=== PATIENT | female | born 1995 | race Two or more races ===

== ENCOUNTER → 2018-05-19 09:51 | Outpatient (REF) | payer MEDICAID, SELFPAY ==
[2018-05-19 12:13] LABS: TSH 4.27 uIU/mL (0.358-3.74)
== END ==
LOC: NCHCN 09:51
PROVIDERS: PCP Nurse Practitioner Family; Visit Provider Nurse Practitioner Family
DX: Z86.39 Personal history of other endocrine, nutritional and metabolic disease (principal)
CPT/HCPCS: 84443

== ENCOUNTER 2018-09-01 11:45 | Outpatient (REF) | payer MEDICAID, SELFPAY ==
[2018-09-01 12:53] LABS: TSH (W/Ref FT4) 3.44 uIU/mL (0.358-3.74)
== END 2018-09-01 12:05 ==
LOC: NCHCN 11:45
PROVIDERS: PCP Nurse Practitioner Family; Visit Provider Nurse Practitioner Family
DX: R94.6 Abnormal results of thyroid function studies (principal)
CPT/HCPCS: 84443

== ENCOUNTER 2018-11-05 10:08 | Outpatient (REF) | payer MEDICAID, SELFPAY ==
[2018-11-05 12:24] LABS: Abs Immature Grans 0.01 k/cumm (0.0-0.09); Absolute Basophil Count 0.04 k/cumm (0.0-0.2); Absolute Eosinophil Count 0.08 k/cumm (0.0-0.7); Absolute Lymphocyte Count 1.82 k/cumm (1.2-3.4); Absolute Monocyte Count 0.49 k/cumm (0.11-0.7); Basophils % 0.6; Eosinophils % 1.1; HCT 40.9 % (36.0-46.0); HGB 13.8 g/dL (12.0-15.5); Immature Grans % 0.1; Lymphocytes % 25.1; Mean Corp. HGB Concentration 33.7 g/dL (32.0-36.0); Mean Corpuscular Hemoglobin 28.6 pg (27.0-33.0); Mean Corpuscular Volume 84.9 fL (80-95); Mean Platelet Volume 10.2 fL (8.0-11.0); Monocytes % 6.8; Neutrophils % 66.3; Platelet Count 345 x1000/uL (130-400); RBC 4.82 m/cumm (4.00-5.20); RBC Distribution Width 12.9 % (11.7-14.6); White Blood Cell Count 7.24 k/cumm (4.4-10.8)
[2018-11-05 12:34] LABS: ALT 27 U/L (12-78); AST 19 U/L (15-37); Albumin 3.4 g/dL (3.4-5.0); Alkaline Phosphatase 54 U/L (46-116); Anion Gap 9.3 mmol/L (3-11); BUN 12 mg/dL (7-18); Bilirubin, Total 0.7 mg/dL (0.2-1.0); CO2 26.7 mmol/L (21.0-32.0); CREATININE 0.73 mg/dL (0.55-1.02); Calcium 9.2 mg/dL (8.5-10.1); Chloride 105 mmol/L (98-107); Glucose 86 mg/dL (70-100); Potassium 4.1 mmol/L (3.5-5.1); Sodium 141 mmol/L (136-145)
[2018-11-06 06:32] LABS: Vitamin D 25 Total 30.2 ng/ml (30-100)
== END 2018-11-05 10:28 ==
LOC: NCHCN 10:08
PROVIDERS: PCP Nurse Practitioner Family; Visit Provider Nurse Practitioner Family
DX: F43.21 Adjustment disorder with depressed mood (principal); G47.00 Insomnia, unspecified
CPT/HCPCS: 80053; 82306; 85025

== ENCOUNTER 2019-11-26 03:21 | Outpatient (CLI) | payer MEDICAID, SELFPAY ==
[2019-11-26 11:44] LABS: HCT 40.6 % (36.0-46.0); HGB 13.6 g/dL (12.0-15.5); Mean Corp. HGB Concentration 33.5 g/dL (32.0-36.0); Mean Corpuscular Hemoglobin 28.5 pg (27.0-33.0); Mean Corpuscular Volume 84.9 fL (80-95); Mean Platelet Volume 9.7 fL (8.0-11.0); Platelet Count 397 x1000/uL (130-400); RBC 4.78 m/cumm (4.00-5.20); RBC Distribution Width 12.9 % (11.7-14.6); White Blood Cell Count 8.95 k/cumm (4.4-10.8)
[2019-11-26 13:12] LABS: ALT 25 U/L (14-59); AST 19 U/L (15-37); Albumin 3.5 g/dL (3.4-5.0); Alkaline Phosphatase 57 U/L (46-116); Anion Gap 8.5 mmol/L (3-11); BUN 8 mg/dL (7-18); Bilirubin, Total 0.6 mg/dL (0.2-1.0); CO2 25.5 mmol/L (21.0-32.0); CREATININE 0.68 mg/dL (0.55-1.02); Calcium 8.7 mg/dL (8.5-10.1); Chloride 105 mmol/L (98-107); Glucose 82 mg/dL (74-106); Potassium 4.6 mmol/L (3.5-5.1); Sodium 139 mmol/L (136-145); Total Protein 6.9 g/dL (6.4-8.2)
== END 2019-11-26 03:41 ==
PROVIDERS: PCP Nurse Practitioner Family; Visit Provider Nurse Practitioner Family
DX: R94.6 Abnormal results of thyroid function studies (principal); F43.21 Adjustment disorder with depressed mood
CPT/HCPCS: 36415; 80053; 85027; 84443

== ENCOUNTER 2020-02-15 12:39 | Outpatient (REF) | payer MEDICAID, SELFPAY ==
[2020-02-15 14:55] LABS: TSH (W/Ref FT4) 4.57 uIU/mL (0.36-3.74)
[2020-02-15 15:13] LABS: FREE T4 0.92 ng/dL (0.76-1.46)
== END 2020-02-15 12:59 ==
LOC: NCHCN 12:39
PROVIDERS: PCP Nurse Practitioner Family; Visit Provider Nurse Practitioner Family
DX: Z86.39 Personal history of other endocrine, nutritional and metabolic disease (principal)
CPT/HCPCS: 84439; 84443

== ENCOUNTER 2020-04-08 10:19 | Outpatient (REF) | payer MEDICAID, SELFPAY ==
--- NOTE | 2020-04-08 10:00 | PAPFT_PTH ---
PATIENT: Mary Jo Healy LOC: [facility] U#:[id number] AGE/SX: 24/F ROOM: RE04/08/[address]: CHEY Hancock : 1995 BED: DIS: 04/08/2020 SPEC #: [id number] RECD: 04/08/20 12:35 STATUS: MUNDO REQ #: [id number] FORREST: 04/08/20 10:[address]: Sharon Ellis DEPT: [facility] Cytology RECD BY: Kecia Morgan ENTERED: 04/08/20 12:41 SP TYPE: PAPFT OTHR DR: Emilie Lancaster Tissues: 1 - CX/ENDOCX FOR PAP SMEARS Procedures: PAP THIN PREP/UVM Screening Comments: [id number]
== END 2020-04-08 10:39 ==
LOC: LBN 10:19
PROVIDERS: PCP Nurse Practitioner Family; Visit Provider Nurse Practitioner Family
DX: Z12.4 Encounter for screening for malignant neoplasm of cervix (principal)
CPT/HCPCS: 88142

== ENCOUNTER 2020-12-02 15:45 | Outpatient (REF) | payer MEDICAID, SELFPAY ==
[2020-12-02 15:46] LABS: HCT 40.2 % (36.0-46.0); HGB 13.5 g/dL (11.2-15.7); MCH 28.8 pg (27.0-33.0); MCHC 33.6 % (32.0-36.0); MCV 85.7 fL (80-95); Platelet Count 415 10^3/uL (130-400); RBC 4.69 10^6/uL (3.93-5.22); RDW 12.9 % (11.7-14.6); WBC 9.35 10^3/uL (4.4-10.8)
[2020-12-02 16:14] LABS: ALT 32 U/L (14-59); AST 19 U/L (15-37); Albumin 3.3 g/dL (3.4-5.0); Alkaline Phosphatase 64 U/L (46-116); BUN 9 mg/dL (7-18); Bilirubin, Total 0.5 mg/dL (0.2-1.0); CREATININE 0.6 mg/dL (0.55-1.02); Calcium 9.1 mg/dL (8.5-10.1); Chloride 104 mmol/L (98-107); Glucose 123 mg/dL (74-106); Sodium 140 mmol/L (136-145); TSH (W/Ref FT4) 3.92 uIU/mL (0.36-3.74)
[2020-12-02 16:37] LABS: FREE T4 0.86 ng/dL (0.76-1.46)
== END 2020-12-02 15:46 | disposition home or self-care (01) ==
LOC: NCHCN 15:45
PROVIDERS: PCP Nurse Practitioner Family; Visit Provider Nurse Practitioner Family
DX: R53.83 Other fatigue (principal); Z86.39 Personal history of other endocrine, nutritional and metabolic disease
CPT/HCPCS: 80053; 85027; 84439; 84443

== ENCOUNTER 2021-12-01 18:41 | Outpatient (REF) | payer MEDICAID, SELFPAY ==
[2021-12-01 18:53] LABS: TSH (W/Ref FT4) 3.78 uIU/mL (0.36-3.74)
[2021-12-01 19:14] LABS: FREE T4 0.92 ng/dL (0.76-1.46)
== END 2021-12-01 18:42 | disposition home or self-care (01) ==
LOC: LBN 18:41
PROVIDERS: PCP Nurse Practitioner Family; Visit Provider Nurse Practitioner Family
DX: Z86.39 Personal history of other endocrine, nutritional and metabolic disease (principal)
CPT/HCPCS: 84439; 84443

== ENCOUNTER 2021-12-17 13:36 | Emergency (ER) | payer MEDICAID, SELFPAY ==
[2021-12-17 13:39] VITALS: BP 141/81; PULSE 96; RESP 18; TEMP 36.2; O2SAT 98
[2021-12-17 14:08] LABS: Abs Immature Grans 0.05 10^3/uL (0.0-0.06); Absolute Basophil Count 0.08 10^3/uL (0.0-0.2); Absolute Lymphocyte Count 3.06 10^3/uL (1.2-3.4); Absolute Monocyte Count 0.74 10^3/uL (0.1-0.8); Absolute Neutrophil Count 7.52 10^3/uL (1.2-6.7); Basophils % 0.7; Eosinophils % 0.9; HCT 43.4 % (36.0-46.0); HGB 14.1 g/dL (11.2-15.7); Immature Grans % 0.4; Lymphocytes % 26.5; MCHC 32.5 % (32.0-36.0); MCV 86.1 fL (80-95); MPV 9.6 fL (8.0-11.0); Monocytes % 6.4; Neutrophils % 65.1; Nucleated RBC 0 %; Platelet Count 425 10^3/uL (130-400); RBC 5.04 10^6/uL (3.93-5.22); RDW 12.6 % (11.7-14.6); RDW-SD 39.3 fL; WBC 11.55 10^3/uL (4.4-10.8)
[2021-12-17 14:10] LABS: Bilirubin Negative (Negative); Blood Negative (Negative); Clarity Clear (Clear); Glucose Negative (Negative); Ketones Negative (Negative); Leukocyte Esterase Small (Negative); Nitrite Negative (Negative); Urobilinogen 0.2 EU/dL (Up TO 0.2); pH 6.5 (5-8)
[2021-12-17 14:16] LABS: Bacteria Few HPF (Negative); C & S Indicated? No; Casts Negative LPF (Negative); Crystals Negative HPF (Negative); Epithelial Cells Few HPF (Negative); Mucus Trace (Negative); RBC 0-2 HPF (0-2)
--- NOTE | 2021-12-17 14:18 | ED.GENADUL_ITS ---
Discharge Plan Disposition Patient Disposition: HOME Condition: Improving Discharge Details Clinical Impression: Abdominal pain Primary Care Provider: Parish Arnold ED Provider: Marcello Umaña Home Meds and New Rx's Prescriptions: New famotidine [Pepcid] 20 mg tablet 20 mg PO BID Qty: 30 0RF Continued melatonin 5 mg/15 mL liquid 10 mg PO HS PRN0RF diphenhydramine HCl [Benadryl] 25 mg capsule 25 mg PO QHS 0RF levonorgestrel-ethinyl estrad [Jolessa] 0.15 mg-30 mcg (91) tablets,dose pack,3 month 1 tab PO DAILY Qty: 91 3RF lactase 3,000 UNIT tablet 3,000 unit PO AC Qty: 120 4RF Rx Instructions: take 1-3 tab PO prior to meals Daily Multiple 1 EACH tablet 1 tab-cap PO DAILY 0RF levothyroxine 25 mcg capsule 25 mcg PO DAILY 0RF buspirone 5 mg Tablet 5 mg PO BID 0RF Discharge Instructions Instructions: Abdominal Pain (ED) Additional Instructions: Your laboratory values do not reveal any obvious emergent process. Your evaluation does not reveal any active bleeding from your rectum. I suspect this was secondary to straining to have a bowel movement last night. Your symptoms resolved with a GI cocktail, I have prescribed you Pepcid, please take as directed. Watch for new or worsening symptoms and return to the ER for any conc erns. I have realized that you want a second opinion regarding your ongoing abdominal pain and IBS, I have placed you on the care management list to help expedite GI follow-up at [facility]. Medical Decision Making 26-year-old female presents with acute on chronic abdominal pain, now worse over the past couple of days in the epigastric and left upper quadrant region. Reports may be slightly worse after eating. Also reports acute on chronic constipation with a very painful bowel movement last night. Noticed blood with her bowel movement yesterday but none today. Heme negative rectal exam. Abdomen with mild discomfort in the left upper quadrant area but certainly nonsurgical. While she does have chronic IBS, I do question gastritis, ulcer, pancreatitis, etc. Less suspicious for biliary colic, appendicitis, etiology. Plan is to obtain IV access, obtain routine screening laboratory values and given a GI cocktail and IV fluid Laboratory values reveal mild nonspecific leukocytosis of 11.55 platelet count 425, anion gap of 11.5, otherwise hematology grossly unremarkable. Patient receiving 1 L IV fluid. Urinalysis reveals small leuk esterase otherwise unremarkable as well. 0-2 red cells 5-10 white cells and few epithelial cells. Culture not indicated secondary to contamination. Patient has no lower abdominal pain or dysuria Upon reevaluation patient appears well, nontoxic, no longer anxious. She reports that her pain has been resolved completely with the GI cocktail. Plan is to provide a 14-day prescription of Pepcid and I will place her on the care management list to help expedite GI consultation at [facility]. Standard discharge and return precautions were provided. This documentation was generated using [employer] dictation system, please disregard any oddities of phrase or misspellings. Medical Records Medical records reviewed: Yes I reviewed the patient's medical records. Lab Data Lab results reviewed: Yes I reviewed the patient's lab results. Labs: Laboratory Tests Range/Units 12/17/21 12/17/21 12/17/21 13:47 13:47 13:54 WBC (4.4-10.8) 10^3/uL 11.55 H RBC (3.93-5.22) 10^6/uL 5.04 Hgb (11.2-15.7) g/dL 14.1 Hct (36.0-46.0) % 43.4 MCV (80-95) fL 86.1 MCH (27.0-33.0) pg 28.0 MCHC (32.0-36.0) % 32.5 RDW (11.7-14.6) % 12.6 Plt Count (130-400) 10^3/uL 425 H MPV (8.0-11.0) fL 9.6 Immature Gran % 0.4 Neutrophils % 65.1 Lymphocytes % 26.5 Monocytes % 6.4 Eosinophils % 0.9 Basophils % 0.7 Nucleated RBC % % 0 Absolute Neutrophils (1.2-6.7) 10^3/uL 7.52 H Absolute Lymphocytes (1.2-3.4) 10^3/uL 3.06 Absolute Monocytes (0.1-0.8) 10^3/uL 0.74 Absolute Eosinophils (0.0-0.7) 10^3/uL 0.10 Absolute Basophils (0.0-0.2) 10^3/uL 0.08 Sodium (136-145) mmol/L 138 Potassium (3.5-5.1) mmol/L 3.5 Chloride (98-107) mmol/L 103 Carbon Dioxide (21.0-32.0) mmol/L 23.5 Anion Gap (3-11) mmol/L 11.5 H BUN (7-18) mg/dL 12 Creatinine (0.55-1.02) mg/dL 0.8 Estimated GFR/1.73 m2 (mL/min/1.73m2) >= 60.00 Glucose (74-106) mg/dL 96 Calcium (8.5-10.1) mg/dL 9.5 Total Bilirubin (0.2-1.0) mg/dL 0.5 AST (15-37) U/L 21 ALT (14-59) U/L 37 Alkaline Phosphatase (46-116) U/L 75 Total Protein (6.4-8.2) g/dL 7.8 Albumin (3.4-5.0) g/dL 3.7 Lipase (73-393) U/L 67 Urine Color (Yellow) Yellow Urine Clarity (Clear) Clear Urine pH (5-8) 6.5 Ur Specific [place] (1.005-1.025) 1.020 Urine Protein (Negative) mg/dL Negative Urine Ketones (Negative) mg/dL Negative Urine Blood (Negative) Negative Urine Nitrite (Negative) Negative Urine Bilirubin (Negative) Negative Urine Urobilinogen (Up TO 0.2) EU/dL 0.2 Ur Leukocyte Esterase (Negative) Small H Urine RBC (0-2) HPF 0-2 Urine WBC (0-5) HPF 5-10 Ur Epithelial Cells (Negative) HPF Few Urine Crystals (Negative) HPF Negative Urine Bacteria (Negative) HPF Few Urine Casts (Negative) LPF Negative Urine Mucus (Negative) Trace Ur Culture Indicated? No Urine Glucose (Negative) mg/dL Negative HPI General Mode of arrival: ambulatory . Date/Time Provider Initiated Documentation: 12/17/21 13:37 . Limitations to Documentation: no limitations . Information obtained by: patient . HPI Narrative: This is a 26-year-old female, past medical history of anxiety, irritable bowel, which she reports as chronic abdominal pain and constipation for nearly 10 years, presents to the ER today for acute on chronic abdominal pain worse over the past couple of days. She reports the pain is worse in her left upper quadrant, it may be slightly worse after eating. Patient states that she had not had a bowel movement in nearly 4 days, took [id number] stool softeners and laxatives, had a very hard bowel movement last night which was painful and she noticed blood at that time. Had a more normal bowel movement today and there is no blood from her rectum. Patient states that she is frustrated as this is an ongoing issue, she feels as though it is not being properly addressed to her primary care provider so she is coming to the ER for additional answers potential referral. She denies any fever, recent illness or trauma, chest pain, shortness of breath, nausea, vomiting, dysuria, hematuria vaginal bleeding or discharge. Denies any black tarry stools. Reports the pain is a 5 out of 10, dull aching. Denies any history of alcohol use or smoking. Denies illicit drug use. Related Data Home Medications Medication Instructions Recorded Confirmed lactase 3,000 unit tablet 3,000 unit PO AC #120 tab 10/22/17 12/17/21 multivitamin-ferrous 1 tab-cap PO DAILY tab-cap 03/06/18 12/17/21 fumarate-folic acid 18 mg-400 mcg tablet (Daily Multiple) levothyroxine 25 mcg capsule 25 mcg PO DAILY 03/26/19 12/17/21 diphenhydramine HCl 25 mg capsule 25 mg PO QHS 06/19/21 12/17/21 (Benadryl) levonorgestrel 0.15 mg-ethinyl 1 tab PO DAILY #91 dose pk 06/19/21 12/17/21 estradiol 30 mcg tablets,3 mos pack(91) (Jolessa) melatonin 5 mg/15 mL oral liquid 10 mg PO HS PRN ml 06/19/21 12/17/21 buspirone 5 mg tablet 5 mg PO BID 12/17/21 12/17/21 famotidine 20 mg tablet (Pepcid) 20 mg PO BID #30 tab 12/17/21 Previous Rx's Medication Instructions Recorded lactase 3,000 unit tablet 3,000 unit PO AC #120 tab 10/22/17 levonorgestrel 0.15 mg-ethinyl 1 tab PO DAILY #91 dose pk 06/19/21 estradiol 30 mcg tablets,3 mos pack(91) (Jolessa) famotidine 20 mg tablet (Pepcid) 20 mg PO BID #30 tab 12/17/21 Allergies Allergy/AdvReac Type Severity Reaction Status Date / Time trazodone AdvReac Severe seratonin Unverified 12/17/21 13:47 syndrome General Stated Complaint: Abd Prob LINWOOD: 3 Review of Systems Constitutional Constitutional: Denies fever(s) Cardiovascular Cardiovascular: Denies chest pain and Denies dyspnea Respiratory Respiratory: Denies dyspnea Gastrointestinal Gastrointestinal: Reports abdominal pain, Denies melena, Reports hematochezia, Reports constipation, Denies diarrhea, Denies nausea and Denies vomiting Genitourinary Genitourinary: Denies abnormal vaginal bleeding, Denies dysuria and Denies vaginal discharge Musculoskeletal Musculoskeletal: Denies back pain Integumentary/Breasts Skin/Breast: Denies rash PFSH All Active Problems Abdominal pain (Acute) Ectropion of cervix (Acute) Surveillance of contraceptive pill (Acute) Hypothyroid (Chronic) Irritable bowel syndrome (Acute 01/22/14) Diagnosis based on symptoms Surgical History Tooth extraction 2007, 2008 Family History Mother Age: 51 Mental disorder anxiety Thyroid disorder Father Age: 62 Essential hypertension Sister Age: 23 Mental disorder behavior problems, antisocial features Brother Age: 19 Autistic disorder of childhood onset Grandmother Obesity Paternal, wt > 400 lbs Maternal Aunt Obesity paternal, x 2 Maternal Aunt Obesity Other Myocardial infarction Social History Smoking/Tobacco Use Status: Never Smoking risk assessment performed?: Yes Alcohol Intake: never Substance use type: does not use Do you feel safe at home: Yes Do you feel safe in your relationship?: Yes Female Reproductive History Menstrual control method: pills History History 0 Para Hx # Term Pregnancies Multiple births Hx # Pregnancies Ectopic pregnancies AB induced Hx Number of Living Children AB spontaneous Exam Const General: cooperative, healthy appearing, comfortable, no acute distress and anxious Orientation: alert, awake and oriented x3 HENMT Head: normal to inspection, normocephalic and atraumatic Face and sinus: normal facial exam Mouth: moist mucous membranes Throat: posterior oropharynx normal Eyes General: appearance normal, both eyes and all related structures Conjunctivae: conjunctivae normal Neck Neck: normal visual inspection, trachea midline and supple Resp Effort & Inspection: normal respiratory effort and able to speak in complete sentences Auscultation: clear to auscultation bilaterally Cardio Rate: regular rate Rhythm: regular rhythm GI Inspection: normal to inspection and obesity Palpation: soft, not firm, no guarding, no pulsatile masses and tender (Mild epigastric and left upper quadrant) Negative for not at McBurney's point, Al's sign negative and with no rebound tenderness Auscultation: normal bowel sounds Rectal Exam - female: visual inspection normal, normal sphincter tone and heme negative stool Back/Spine/Pelvis Back: no CVA tenderness and No back tenderness Skin General skin exam: no rashes or lesions noted Neuro General: patient alert, patient awake, moves all extremities and no focal motor deficits Cognition: normal cognition Speech: speech normal Gait: normal gait Sensory Exam: no sensory deficits noted Psych Appearance: grossly normal Mental Status: mental status grossly normal Course Vital Signs Vital signs: Vital Signs Temperature 36.2 C L 12/17/21 13:39 Pulse 96 H 12/17/21 13:39 Respiratory Rate 18 12/17/21 13:39 Blood Pressure 141/81 H 12/17/21 13:39 Pulse Oximetry 98 12/17/21 13:39 Temperature 36.2 C L 12/17/21 13:39 Temperature Source Skin 12/17/21 13:39 Pulse 96 H 12/17/21 13:39 Respiratory Rate 18 12/17/21 13:39 Respiratory Effort 12/17/21 13:50 Blood Pressure 141/81 H 12/17/21 13:39 Blood Pressure Position Sitting 12/17/21 13:39 Pulse Oximetry 98 12/17/21 13:39 Oxygen Delivery Method Room Air 12/17/21 13:39 Oxygen Flow Rate 0 12/17/21 13:39 Pain Level 8 12/17/21 13:39 Comment 12/17/21 13:39 Lab/Test Results Lab/Test Results: Laboratory Tests Range/Units 12/17/21 12/17/21 13:47 13:54 WBC (4.4-10.8) 10^3/uL 11.55 H RBC (3.93-5.22) 10^6/uL 5.04 Hgb (11.2-15.7) g/dL 14.1 Hct (36.0-46.0) % 43.4 MCV (80-95) fL 86.1 MCH (27.0-33.0) pg 28.0 MCHC (32.0-36.0) % 32.5 RDW (11.7-14.6) % 12.6 Plt Count (130-400) 10^3/uL 425 H MPV (8.0-11.0) fL 9.6 Immature Gran % 0.4 Neutrophils % 65.1 Lymphocytes % 26.5 Monocytes % 6.4 Eosinophils % 0.9 Basophils % 0.7 Nucleated RBC % % 0 Absolute Neutrophils (1.2-6.7) 10^3/uL 7.52 H Absolute Lymphocytes (1.2-3.4) 10^3/uL 3.06 Absolute Monocytes (0.1-0.8) 10^3/uL 0.74 Absolute Eosinophils (0.0-0.7) 10^3/uL 0.10 Absolute Basophils (0.0-0.2) 10^3/uL 0.08 Urine Color (Yellow) Yellow Urine Clarity (Clear) Clear Urine pH (5-8) 6.5 Ur Specific [place] (1.005-1.025) 1.020 Urine Protein (Negative) mg/dL Negative Urine Ketones (Negative) mg/dL Negative Urine Blood (Negative) Negative Urine Nitrite (Negative) Negative Urine Bilirubin (Negative) Negative Urine Urobilinogen (Up TO 0.2) EU/dL 0.2 Ur Leukocyte Esterase (Negative) Small H Urine RBC (0-2) HPF 0-2 Urine WBC (0-5) HPF 5-10 Ur Epithelial Cells (Negative) HPF Few Urine Crystals (Negative) HPF Negative Urine Bacteria (Negative) HPF Few Urine Casts (Negative) LPF Negative Urine Mucus (Negative) Trace Ur Culture Indicated? No Urine Glucose (Negative) mg/dL Negative POC- Test(urine) Negative
[2021-12-17 14:24] LABS: ALT 37 U/L (14-59); AST 21 U/L (15-37); Albumin 3.7 g/dL (3.4-5.0); Alkaline Phosphatase 75 U/L (46-116); Anion Gap 11.5 mmol/L (3-11); BUN 12 mg/dL (7-18); Bilirubin, Total 0.5 mg/dL (0.2-1.0); CO2 23.5 mmol/L (21.0-32.0); CREATININE 0.8 mg/dL (0.55-1.02); Calcium 9.5 mg/dL (8.5-10.1); Chloride 103 mmol/L (98-107); Glucose 96 mg/dL (74-106); Lipase 67 U/L (73-393); Potassium 3.5 mmol/L (3.5-5.1); Sodium 138 mmol/L (136-145); Total Protein 7.8 g/dL (6.4-8.2)
[2021-12-17] MEDS: Normal Saline 1,000 ML 1000 ML IV (14:37)
--- NOTE | 2021-12-17 14:57 | NUR.NOTE ---
Nursing Note: Referral given to Care Management for IBS, chronic pain, to [facility], within the next 3 weeks. Josie Shen
[2021-12-17 15:29] VITALS: BP 124/84; PULSE 98; RESP 16; TEMP 36.4
--- NOTE | 2021-12-19 10:59 | CMACTNOTE_ITS ---
- If Service Date Differs Date of service: 12/18/21 Time of Service: 10:59 Care Management Activity Note Mary Jo is seen in the ED for abdominal pain. At the request of ED provider, CM coordinates a referral to [facility] to assist Mary Jo in obtaining a follow up appointment.
== END 2021-12-17 15:40 | disposition home or self-care (01) ==
PROVIDERS: Emergency Provider Physician Assistant; PCP Nurse Practitioner Family
DX: R10.12 Left upper quadrant pain (principal); R10.13 Epigastric pain; K59.00 Constipation, unspecified; D72.829 Elevated white blood cell count, unspecified
CPT/HCPCS: 36415; 80053; 81025; 83690; 96360; 99284; 81003; 81015; 85025; 99283

== ENCOUNTER 2022-03-16 15:10 | Outpatient (REF) | payer MEDICAID, SELFPAY ==
[2022-03-16 20:02] LABS: TSH (W/Ref FT4) 3.54 uIU/mL (0.36-3.74)
== END 2022-03-16 15:11 | disposition home or self-care (01) ==
LOC: NCHCN 15:10
PROVIDERS: PCP Nurse Practitioner Family; Visit Provider Nurse Practitioner Family
DX: R53.83 Other fatigue (principal); N92.6 Irregular menstruation, unspecified; Z86.39 Personal history of other endocrine, nutritional and metabolic disease
CPT/HCPCS: 84443

== ENCOUNTER 2022-05-03 15:30 | Outpatient (REF) | payer MEDICAID, SELFPAY ==
[2022-05-03 16:12] LABS: TSH (W/Ref FT4) 4.67 uIU/mL (0.36-3.74)
== END 2022-05-03 15:31 | disposition home or self-care (01) ==
LOC: NCHCN 15:30
PROVIDERS: PCP Nurse Practitioner Family; Visit Provider Nurse Practitioner Family
DX: Z86.39 Personal history of other endocrine, nutritional and metabolic disease (principal); R53.83 Other fatigue
CPT/HCPCS: 84439; 84443

== ENCOUNTER 2022-06-22 15:05 | Outpatient (REF) | payer MEDICAID, SELFPAY ==
[2022-06-22 16:15] LABS: TSH (W/Ref FT4) 2.17 uIU/mL (0.36-3.74)
== END 2022-06-22 15:06 | disposition home or self-care (01) ==
LOC: NCHCN 15:05
PROVIDERS: Visit Provider Nurse Practitioner Family
DX: Z86.39 Personal history of other endocrine, nutritional and metabolic disease (principal)
CPT/HCPCS: 84443

== ENCOUNTER 2022-07-03 17:36 | Outpatient (REF) | payer MEDICAID, SELFPAY ==
--- NOTE | 2022-07-03 15:00 | CER_PTH ---
PATIENT: Mary Jo Healy LOC: [facility] U#:[id number] AGE/SX: 26/F ROOM: RE07/03/[address]: Maria Teresa Vásquez MD : 1995 BED: DIS: 07/03/2022 SPEC #: [id number] RECD: 07/03/22 18:30 STATUS: MUNDO REQ #: [id number] FORREST: 07/03/22 15:[address]: Maria Teresa Vásquez DEPT: Surgical Specimen RECD BY: Kecia Morgan Tissues: 1 - CERVICAL BIOPSY Procedures: GROSS AND MICRO LEVEL 4 IMMUNOPEROXIDASE STAIN Comments: [id number]
== END 2022-07-03 17:37 | disposition home or self-care (01) ==
LOC: LBN 17:36
PROVIDERS: Visit Provider Obstetrics & Gynecology
DX: N84.1 Polyp of cervix uteri (principal); N87.9 Dysplasia of cervix uteri, unspecified; N92.5 Other specified irregular menstruation
CPT/HCPCS: 88305; 88361

== ENCOUNTER 2023-01-03 12:07 | Outpatient (REF) | payer MEDICAID, SELFPAY ==
[2023-01-04 13:29] LABS: Hemoglobin A1C 5.9 % (<5.7)
[2023-01-04 13:39] LABS: TSH (W/Ref FT4) 1.74 uIU/mL (0.36-3.74)
[2023-01-04 14:13] LABS: Vitamin D 25 Total 21.3 ng/mL (30-100)
== END 2023-01-03 12:08 | disposition home or self-care (01) ==
LOC: NCHCN 12:07
PROVIDERS: Visit Provider Registered Nurse
DX: F33.1 Major depressive disorder, recurrent, moderate (principal); R73.09 Other abnormal glucose; E55.9 Vitamin D deficiency, unspecified
CPT/HCPCS: 82306; 83036; 84443

== ENCOUNTER 2023-03-05 13:46 | Outpatient (REF) | payer MEDICAID, SELFPAY ==
[2023-03-06 12:23] LABS: Iron 50 ug/dL (50-170); Total Iron Binding Capacity 389 ug/dL (250-450); Transferrin Sat 13 % (15-50)
[2023-03-06 12:30] LABS: ALT 49 U/L (14-59); AST 32 U/L (15-37); Albumin 3.9 g/dL (3.4-5.0); Alkaline Phosphatase 103 U/L (46-116); Anion Gap 7.2 mmol/L (3-11); BUN 9 mg/dL (7-18); Bilirubin, Total 0.7 mg/dL (0.2-1.0); C-Reactive Protein 1.96 mg/dL (0.0-0.3); CO2 28.8 mmol/L (21.0-32.0); CREATININE 0.7 mg/dL (0.55-1.02); Calcium 9.1 mg/dL (8.5-10.1); Chloride 103 mmol/L (98-107); Estimated GFR 121.49 (mL/min/1.73m2); Glucose 90 mg/dL (74-106); Magnesium 1.8 mg/dL (1.8-2.4); Potassium 4.5 mmol/L (3.5-5.1); Sodium 139 mmol/L (136-145); Total Protein 7.6 g/dL (6.4-8.2)
[2023-03-06 20:16] LABS: Vitamin B12 502 pg/mL (193-986)
[2023-03-06 22:47] LABS: Ferritin 17 ng/mL (10-291); Folate >24.0 ng/mL (See Note)
== END 2023-03-05 13:47 | disposition home or self-care (01) ==
LOC: NCHCN 13:46
PROVIDERS: Nurse Practitioner Family; Visit Provider Registered Nurse
DX: F33.1 Major depressive disorder, recurrent, moderate (principal); F41.8 Other specified anxiety disorders; E61.1 Iron deficiency; R79.82 Elevated C-reactive protein (CRP); Z79.899 Other long term (current) drug therapy
CPT/HCPCS: 80053; 82607; 82728; 82746; 83540; 83550; 83735; 85025; 86140

== ENCOUNTER 2023-04-10 00:51 | Outpatient (CLI) | payer MEDICAID, SELFPAY ==
--- NOTE | 2023-04-10 14:28 | DI.RAD_ITS ---
Exam(s) XR CERVICAL SPINE COMP 4-5V EXAM: XR CERVICAL SPINE COMP 4-5V CLINICAL HISTORY: NUMBNESS,TINGLING,R20.2,NECK PAIN,M54.2. TECHNIQUE: 2D digital imaging was performed. COMPARISON: No exams were available for comparison FINDINGS: Five views: No evidence of fracture, listhesis, nor offset of the spinal laminar line. No obvious disc space rubi rowing. No cervical ribs. On oblique images there are no prominent Luschka joint osteophytes encroa luisana upon the exiting neural foramina. Bone density normal. No osseous lesions. IMPRESSION: No significant osseous findings on these images of the cervical spine. If clinically indicated follow-up MRI can be performed. DATA REPOSITORY: RADIATION DOSE DELIVERED:
== END 2023-04-10 01:11 ==
LOC: DI 00:51
PROVIDERS: Visit Provider Nurse Practitioner Family
DX: R20.0 Anesthesia of skin (principal); M54.2 Cervicalgia
CPT/HCPCS: 72050

== ENCOUNTER 2023-10-17 12:49 | Outpatient (REF) | payer MEDICAID, SELFPAY ==
[2023-10-17 18:45] LABS: Abs Immature Grans 0.04 10^3/uL (0.0-0.06); Absolute Basophil Count 0.11 10^3/uL (0.0-0.2); Absolute Eosinophil Count 0.07 10^3/uL (0.0-0.7); Absolute Lymphocyte Count 2.75 10^3/uL (1.2-3.4); Absolute Monocyte Count 0.57 10^3/uL (0.1-0.8); Absolute Neutrophil Count 6.42 10^3/uL (1.2-6.7); Basophils % 1.1; Eosinophils % 0.7; HCT 39.9 % (36.0-46.0); HGB 12.9 g/dL (11.2-15.7); Immature Grans % 0.4; Lymphocytes % 27.6; MCH 26.8 pg (27.0-33.0); MCHC 32.3 % (32.0-36.0); MCV 83 fL (80-95); MPV 9.8 fL (8.0-11.0); Monocytes % 5.7; Neutrophils % 64.5; Platelet Count 433 10^3/uL (130-400); RBC 4.81 10^6/uL (3.93-5.22); RDW 13.4 % (11.7-14.6); RDW-SD 40.2 fL; WBC 9.96 10^3/uL (4.4-10.8)
[2023-10-17 19:12] LABS: Hemoglobin A1C 5.6 % (<5.7)
[2023-10-17 19:24] LABS: ALT 35 U/L (14-59); AST 20 U/L (15-37); Alkaline Phosphatase 88 U/L (46-116); Anion Gap 9.9 mmol/L (3-11); BUN 10 mg/dL (7-18); Bilirubin, Total 0.6 mg/dL (0.2-1.0); CO2 27.1 mmol/L (21.0-32.0); CREATININE 0.8 mg/dL (0.55-1.02); Calcium 9.4 mg/dL (8.5-10.1); Calculated LDL 141 mg/dL (<100); Chloride 103 mmol/L (98-107); Cholesterol 221 mg/dL (<200); Estimated GFR 102.86 (mL/min/1.73m2); Glucose 94 mg/dL (74-106); HDL Cholesterol 54 mg/dL (40-60); Potassium 4.6 mmol/L (3.5-5.1); Sodium 140 mmol/L (136-145); TSH 3.48 uIU/mL (0.36-3.74); Total Protein 7.3 g/dL (6.4-8.2); Triglyceride 130 mg/dL (<150)
[2023-10-17 19:41] LABS: FREE T4 1.03 ng/dL (0.76-1.46)
== END 2023-10-17 12:50 | disposition home or self-care (01) ==
LOC: NCHCN 12:49
PROVIDERS: Visit Provider Nurse Practitioner Family
DX: F41.8 Other specified anxiety disorders (principal); R73.03 Prediabetes; E66.8 Other obesity; Z68.41 Body mass index [BMI] 40.0-44.9, adult; R79.89 Other specified abnormal findings of blood chemistry
CPT/HCPCS: 80053; 80061; 83036; 84439; 84443; 85025

== ENCOUNTER 2023-10-28 17:37 | Emergency (ER) | payer MEDICAID, SELFPAY ==
[2023-10-28 17:43] VITALS: BP 126/80; PULSE 81; RESP 17; TEMP 36.6; O2SAT 100
--- NOTE | 2023-10-28 17:50 | ED.GENADUL_ITS ---
HPI General Date/Time Provider Initiated Documentation: 10/28/23 17:50 . HPI Narrative: MDM This is an overall very well-appearing normothermic and not tachycardic 28-year-old female exposed to COVID with shallow ulcers in her mouth concerning for the possibility of COVID for which she will receive respiratory viral panel. Will also swab for strep pharyngitis. Patient handling secretions and nontoxic so my suspicion is low for epiglottitis. Similarly given no difficulty breathing doubt bacterial tracheitis. Good range of motion in the neck so my suspicion is low for retropharyngeal abscess. Uvula midline so doubt peritonsillar abscess. No recent new sexual partners without sexually-tra nsmitted infection. Handling secretions so no indication for hospitalization. No pain out of proportion to suggest necrotizing soft tissue infection. No Koplik spots to suggest measles. 7:34 PM Patient tested positive for COVID. Strep negative. I advised quarantining at home for the next 5 days. Patient did receive dexamethasone given concern for pharyngitis prior to her COVID swab resulting. Dexamethasone was not for COVID this patient was not hypoxic and did not require hospitalization. Patient I discussed return indications including any difficulty breathing shortness of breath nausea vomiting or inability to tolerate p.o. She understood her return indications and was discharged with empiric trial of expectant outpatient management. Chronic conditions affecting the care of the patient: N/A History obtained from an outside historian: N/A External record review: N/A Medications: Dexamethasone Social determinants of health affecting disposition: N/A Management discussed with: N/A Treatment/interventions considered: N/A Response to therapies provided: N/A HPI This is a 28-year-old female arrived to the emergency department via private vehicle in setting of some shallow red bumps on her throat. Her father recently tested positive for COVID. She has had pain when swallowing. This has been going on for special days. She had no difficulty breathing no significant cough nor headaches. No fevers nor vomiting. No prior history of similar symptoms. She has been vaccinated against COVID and received her last COVID vaccine last week. No chest pain. No shortness of breath. Exam General: Well-appearing in no acute distress speaking in complete sentences. Head: Normocephalic, atraumatic. Eye: Extraocular eye movements intact. No conjunctival injection. No scleral icterus. Ear, nose, mouth, throat: Shallow-based mildly erythematous macules on hard palate. normal voice, handling secretions normally. Uvula midline. Good range of motion in neck. No significant posterior oropharynx erythema. No Koplik spots. Neck: Trachea midline. Cardiovascular: Well-perfused distal extremities. Regular rate and rhythm. Respiratory: Nonlabored respiration. Clear lungs bilaterally. Gastrointestinal: Nondistended abdomen. Musculoskeletal: No edema. Moving all 4 extremities spontaneously. Skin: Normal for age and race, grossly normal temperature and turgor. No acute rash. Neurologic: Alert and appropriate, no apparent acute deficits. Psychiatric: Mood and manner are appropriate. Grooming and personal hygiene are appropriate. Related Data Home Medications Medication Instructions Recorded Confirmed lactase 3,000 unit tablet 3,000 unit PO AC #120 tabs 10/22/17 07/03/22 multivitamin-ferrous 1 tab-cap PO DAILY 03/06/18 10/28/23 fumarate-folic acid 18 mg-400 mcg tablet (Daily Multiple) melatonin 5 mg/15 mL oral liquid 10 mg PO HS PRN 06/19/21 10/28/23 Lactobacillus acidophilus 5,000 mmu cells PO DAILY 07/03/22 07/03/22 (Acidophilus capsule) bupropion HCl 300 mg 24 hr tablet, 300 mg PO QAM 07/03/22 10/28/23 extended release diphenhydramine HCl 25 mg capsule 50 mg PO QHS 07/03/22 10/28/23 (Benadryl) elderberry fruit 460 mg-elderberry 1 cap PO DAILY 07/03/22 10/28/23 flower 115 mg capsule levomefolate calcium 7.5 mg tablet 7.5 mg PO DAILY 07/03/22 07/03/22 (L-Methylfolate) levothyroxine 25 mcg capsule 75 mcg PO DAILY 07/03/22 10/28/23 Previous Rx's Medication Instructions Recorded lactase 3,000 unit tablet 3,000 unit PO AC #120 tabs 10/22/17 Allergies Allergy/AdvReac Type Severity Reaction Status Date / Time trazodone AdvReac Severe seratonin Unverified 07/03/22 13:52 syndrome General Stated Complaint: DentalOral LINWOOD: 4 Course Vital Signs Vital signs: Vital Signs Temperature 36.6 C 10/28/23 17:43 Pulse 81 10/28/23 17:43 Respiratory Rate 17 10/28/23 17:43 Blood Pressure 126/80 10/28/23 17:43 Pulse Oximetry 100 10/28/23 17:43 Temperature 36.6 C 10/28/23 17:43 Temperature Source Oral 10/28/23 17:43 Pulse 81 10/28/23 17:43 Respiratory Rate 17 10/28/23 17:43 Respiratory Effort Normal, Non-Labored 10/28/23 17:47 Blood Pressure 126/80 10/28/23 17:43 Blood Pressure Position Sitting 10/28/23 17:43 Pulse Oximetry 100 10/28/23 17:43 Oxygen Delivery Method Room Air 10/28/23 17:43 Oxygen Flow Rate 0 10/28/23 17:43 Medical Decision Making Quality:SDOH Health Related Social Needs: No Data to Display PFSH All Active Problems (Updated 10/28/23 @ 19:31 by Nikita Ashley MD) COVID-19 virus infection (Acute) Ectropion of cervix (Acute) Surveillance of contraceptive pill (Acute) Hypothyroid (Chronic) Irritable bowel syndrome (Acute 01/22/14) Diagnosis based on symptoms Surgical History Tooth extraction 2007, 2008 Family History Mother Age: 53 Mental disorder anxiety Thyroid disorder Father Age: 64 Essential hypertension Sister Age: 25 Mental disorder behavior problems, antisocial features Brother Age: 21 Autistic disorder of childhood onset Grandmother Obesity Paternal, wt > 400 lbs Maternal Aunt Obesity paternal, x 2 Maternal Aunt Obesity Other Myocardial infarction Social History Smoking/Tobacco Use Status: Never Smoking risk assessment performed?: Yes Alcohol Intake: never Drug use: Occasionally Substance use type: marijuana Details: cbd gummies Housing: house Do you feel safe at home: Yes Do you feel safe in your relationship?: Yes Female Reproductive History Menstrual control method: pills History History 0 Para Hx # Term Pregnancies Multiple births Hx # Pregnancies Ectopic pregnancies AB induced Hx Number of Living Children AB spontaneous Discharge Plan Disposition Patient Disposition: Home Discharge Details Clinical Impression: COVID-19 virus infection Primary Care Provider: Jovita Smith ED Provider: Nikita Ashley Home Meds and New Rx's Prescriptions: Continued elderberry fruit and flower 460-115 mg capsule 1 cap PO DAILY Patient Comments: 07/03/22- pt takes 630 mg elderberry sambucus per pt Acidophilus Capsule 5,000 mmu cells PO DAILY levomefolate calcium [L-Methylfolate] 7.5 mg tablet 7.5 mg PO DAILY Patient Comments: 07/03/22- pt reports taking 75 mcg bupropion HCl 300 mg tablet extended release 24 hr 300 mg PO QAM Patient Comments: 07/03/22- pt unsure of er/ hcl status. Pt sure that she takes 300 mg. melatonin 5 mg/15 mL liquid 10 mg PO HS PRN diphenhydramine HCl [Benadryl] 25 mg capsule 50 mg PO QHS lactase 3,000 UNIT tablet 3,000 unit PO AC Qty: 120 4RF Rx Instructions: take 1-3 tab PO prior to meals Daily Multiple 1 EACH tablet 1 tab-cap PO DAILY levothyroxine 25 mcg capsule 75 mcg PO DAILY Discharge Instructions Additional Instructions: You were seen in the emergency department for the sores in your mouth. You were found to have COVID, which could certainly explain your symptoms. Your oxygen level was reassuring and was 100%. Please return if you develop difficulty breathing or cannot eat or drink as result of nausea or vomiting. Please quarantine at home for the next 5 days. You may return to your work afterwards if you no longer have symptoms or if you test negative on home test. For your pain please take medications as follows: 1. Take acetaminophen (Tylenol), 1,000 mg (two 500 mg tabs) every 6 hours [2. Take ibuprofen (Advil), 400 mg every 6 hours.]
[2023-10-28] MEDS: Dexamethasone 4 MG TAB 8 MG PO (18:46)
[2023-10-28 19:22] LABS: Influenza A PCR Negative (Negative); Influenza B PCR Negative (Negative); RSV PCR Negative (Negative)
[2023-10-28 19:25] LABS: COVID-19 PCR Positive (Negative)
[2023-10-28 19:26] LABS: Source Nasopharynx
== END 2023-10-28 19:41 | disposition home or self-care (01) ==
PROVIDERS: Emergency Provider Emergency Medicine; PCP Nurse Practitioner Family
DX: K12.1 Other forms of stomatitis (principal); U07.1 COVID-19
CPT/HCPCS: 87637; 87880; 99283; 87081; J8540

== ENCOUNTER 2023-12-17 16:14 | Outpatient (REF) | payer MEDICAID, SELFPAY ==
--- NOTE | 2023-12-17 15:40 | PAPFT_PTH ---
PATIENT: Mary Jo Healy LOC: [facility] U#:[id number] AGE/SX: 28/F ROOM: RE12/17/[address]: Maria Teresa Vásquez MD : 1995 BED: DIS: 12/17/2023 SPEC #: [id number] RECD: 12/17/23 17:38 STATUS: MUNDO REBrenna #: [id number] FORREST: 12/17/23 15:[address]: Maria Teresa Vásquez DEPT: [facility] Cytology RECD BY: Kecia Morgan ENTERED: 12/17/23 17:38 SP TYPE: PAPFT OTHR DR: KARINE CLEMENT Tissues: 1 - CX/ENDOCX FOR PAP SMEARS Procedures: PAP THIN PREP/UVM Screening HPV DNA PROBE Comments: [id number]
== END 2023-12-17 16:15 | disposition home or self-care (01) ==
LOC: LBN 16:14
PROVIDERS: PCP Nurse Practitioner Family; Visit Provider Obstetrics & Gynecology
DX: Z12.4 Encounter for screening for malignant neoplasm of cervix (principal); Z11.51 Encounter for screening for human papillomavirus (HPV)
CPT/HCPCS: 88142; 87624

== ENCOUNTER 2024-05-06 18:08 | Outpatient (REF) | payer MEDICAID, SELFPAY ==
[2024-05-06 20:59] LABS: Abs Immature Grans 0.02 10^3/uL (0.0-0.06); Absolute Basophil Count 0.09 10^3/uL (0.0-0.2); Absolute Eosinophil Count 0.07 10^3/uL (0.0-0.7); Absolute Lymphocyte Count 2.43 10^3/uL (1.2-3.4); Absolute Monocyte Count 0.69 10^3/uL (0.1-0.8); Absolute Neutrophil Count 5.92 10^3/uL (1.2-6.7); Eosinophils % 0.8 %; HCT 41.8 % (36.0-46.0); HGB 13.4 g/dL (11.2-15.7); Immature Grans % 0.2 %; Lymphocytes % 26.4 %; MCHC 32.1 % (32.0-36.0); MCV 87 fL (80-95); MPV 10.1 fL (8.0-11.0); Monocytes % 7.5 %; Neutrophils % 64.1 %; Platelet Count 386 10^3/uL (130-400); RBC 4.78 10^6/uL (3.93-5.22); RDW 13.7 % (11.7-14.6); RDW-SD 43.8 fL; WBC 9.22 10^3/uL (4.4-10.8)
[2024-05-06 21:27] LABS: Iron 77 ug/dL (50-170); Total Iron Binding Capacity 421 ug/dL (250-450); Transferrin Sat 18 % (15-50)
[2024-05-06 21:33] LABS: ALT 40 U/L (14-59); AST 19 U/L (15-37); Albumin 4.3 g/dL (3.4-5.0); Alkaline Phosphatase 82 U/L (46-116); Anion Gap 13.9 mmol/L (3-11); BUN 7 mg/dL (7-18); CO2 24.1 mmol/L (21.0-32.0); CREATININE 0.8 mg/dL (0.55-1.02); Calcium 9.7 mg/dL (8.5-10.1); Chloride 103 mmol/L (98-107); Estimated GFR 102.86 (mL/min/1.73m2); FREE T4 0.95 ng/dL (0.76-1.46); Ferritin 25 ng/mL (8-252); Glucose 84 mg/dL (74-106); Potassium 4.5 mmol/L (3.5-5.1); Sodium 141 mmol/L (136-145); TSH 1.63 uIU/Ml (0.36-3.74); Total Protein 7.3 g/dL (6.4-8.2)
[2024-05-07 12:23] LABS: Hemoglobin A1C 5.4 % (<5.7)
== END 2024-05-06 18:09 | disposition home or self-care (01) ==
LOC: NCHCN 18:08
PROVIDERS: PCP Nurse Practitioner Family; Visit Provider Nurse Practitioner Family
DX: E03.9 Hypothyroidism, unspecified (principal); F41.8 Other specified anxiety disorders; R73.03 Prediabetes; G47.00 Insomnia, unspecified; Z86.2 Personal history of diseases of the blood and blood-forming organs and certain disorders involving the immune mechanism
CPT/HCPCS: 80053; 82728; 83036; 83540; 83550; 84439; 84443; 85025

== ENCOUNTER 2025-03-06 16:07 | Outpatient (REF) | payer MEDICAID, SELFPAY ==
[2025-03-06 17:46] LABS: COVID-19 PCR Negative (Negative); Influenza A PCR Negative (Negative); Influenza B PCR Negative (Negative); RSV PCR Negative (Negative)
[2025-03-06 18:04] LABS: Source Nasopharynx
== END 2025-03-06 16:08 | disposition home or self-care (01) ==
LOC: LBN 16:07
PROVIDERS: PCP Nurse Practitioner Family; Visit Provider Physician Assistant Medical
DX: J02.9 Acute pharyngitis, unspecified (principal); J06.9 Acute upper respiratory infection, unspecified
CPT/HCPCS: 87637; 87070

== ENCOUNTER 2025-07-29 08:31 | Outpatient (CLI) | payer BC, MEDICAID, SELFPAY ==
[2025-07-29 08:44] LABS: HCT 38.8 % (36.0-46.0); HGB 12.7 g/dL (11.2-15.7); MCH 27.7 pg (27.0-33.0); MCHC 32.7 % (32.0-36.0); MCV 85 fL (80-95); MPV 9.2 fL (8.0-11.0); Platelet Count 381 10^3/uL (130-400); RBC 4.59 10^6/uL (3.93-5.22); RDW 12.8 % (11.7-14.6); RDW-SD 38.8 fL; WBC 6.59 10^3/uL (4.4-10.8)
[2025-07-29 09:23] LABS: ALT 29 U/L (14-59); AST 16 U/L (15-37); Albumin 3.8 g/dL (3.4-5.0); Alkaline Phosphatase 77 U/L (46-116); Anion Gap 7.9 mmol/L (3-11); BUN 13 mg/dL (7-18); Bilirubin, Total 0.7 mg/dL (0.2-1.0); CO2 29.1 mmol/L (21.0-32.0); Calcium 8.7 mg/dL (8.5-10.1); Chloride 103 mmol/L (98-107); Glucose 97 mg/dL (74-106); Potassium 4.2 mmol/L (3.5-5.1); Sodium 140 mmol/L (136-145); TSH (W/Ref FT4) 1.87 uIU/mL (0.36-3.74); Total Protein 7.3 g/dL (6.4-8.2)
[2025-07-29 09:33] LABS: Hemoglobin A1C 5.5 % (<5.7)
== END 2025-07-29 08:32 | disposition home or self-care (01) ==
LOC: LBO 08:33
PROVIDERS: PCP Nurse Practitioner Family
DX: Z01.89 Encounter for other specified special examinations (principal); E03.9 Hypothyroidism, unspecified
CPT/HCPCS: 36415; 80053; 85027; 83036; 84443